=== PATIENT | male | born 1960 | race Caucasian/White ===

== ENCOUNTER 2021-02-02 19:09 | Emergency (ER) | payer MEDICARE, BC ==
[~2021-02-02] VITALS: Ht 170.2 cm; Wt 102.1 kg
[~2021-02-02 19:09] MED LIST: ALLO100 PO; AMIT50 PO; ASCO500 PO; ATEN25 PO; ATEN50 PO; CALTRATE PO; CIPR500 PO; CIPR750 PO; CLON1 PO; CRANBERRY; CRANBERRY PO; Cephalexin500 MG PO; DICL75ER PO; ERGO400 PO; FISH1000 PO; FURO40 PO; GEMF600 PO; GLIP5 PO; GLYB5 PO; HYDACE5 PO; HYDCHL25 PO; LEVFLO500 PO; LISI20 PO; LOVA20 PO; Lisinopril2.5 MG; MAGOXI400 PO; METF500 PO; NAPR375 PO; OMEP20ER PO; ONDA4 PO; OXYC10ER PO; OXYC15ER PO; OXYC20ER PO; OXYC5 PO; POTA10T PO; PREG100 PO; PREG50 PO; PREG75 PO; PROM25 PO; RXHYDACE PO; TAMS.4ER PO; TRADJENTA5 MG PO; [UNRECOGNIZED DRUG - OTHER]; [UNRECOGNIZED DRUG - OTHER]; [UNRECOGNIZED DRUG - OTHER] PO
== END 2021-02-02 22:30 | disposition home or self-care (01) ==
LOC: ER 19:09
DX: T83.098A Other mechanical complication of other urinary catheter, initial encounter (principal); R33.9 Retention of urine, unspecified
CPT/HCPCS: 51705; 51798; 99283-25; C2627

== ENCOUNTER → 2024-07-24 | Outpatient (CLI) | payer MEDICARE, BC | END | disposition home or self-care (01) | LOC: LAB SHORT 10:00 → LAB 10:00 | DX: N39.0 Urinary tract infection, site not specified (principal) | CPT/HCPCS: 87077; 87086; 87186 ==

== ENCOUNTER → 2025-01-12 | Outpatient (CLI) | payer MEDICARE, BC ==
[2025-01-12 13:58] LABS: Microalbumin, Urine Quant. 297.0 mg/L (0.000-20.000); Protein, Urine Quantitative 52.3 mg/dL (0.0-11.9)
== END ==
LOC: LAB SHORT 12:19 → LAB 12:19
PROVIDERS: Internal Medicine Nephrology
DX: N18.2 Chronic kidney disease, stage 2 (mild) (principal); D63.1 Anemia in chronic kidney disease; N25.81 Secondary hyperparathyroidism of renal origin; E55.9 Vitamin D deficiency, unspecified; E29.1 Testicular hypofunction; R76.9 Abnormal immunological finding in serum, unspecified; R94.5 Abnormal results of liver function studies; G60.9 Hereditary and idiopathic neuropathy, unspecified
CPT/HCPCS: 82043; 82570; 84156